=== PATIENT | male | born 1995 | race Caucasian/White ===

== ENCOUNTER 2021-02-01 11:00 | Observation (INO) ==
--- NOTE | 2021-01-31 11:11 | Anesthesiology Consultation ---
Date of Service January 31, 2021 Assessment & Plan (1) Encounter for pre-operative examination: COVID screening: Per assessment on 01/31: Travel screen negative, no known COVID- 19 positive contacts or current COVID-19 related symptoms. Surgeon arranged preop COVID testing (done 01/28- result negative). Chart Review Chart Review: Acceptable Risk for Surgery and Patient NOT seen in Pre Admission Testing Consults Requested none History Surgery Operation Date: 02/01/21 12:25 Proposed Procedures p L4-L5 Decompression with Possible Coflex Spinal Cord Monitoring - Roge Ferro DO Height/Weight Height: 5 ft 10 in Weight: 115.666 kg Allergies Allergy/AdvReac Type Severity Reaction Status Date / Time No Known Allergies Allergy Verified 02/01/21 11:31 Medications Home Medications Medication Instructions Recorded Confirmed Last Taken lisinopril 40 mg PO QPM 01/31/21 02/01/21 2 Days Ago ~01/30/21 meloxicam 15 mg PO QPM 01/31/21 02/01/21 2 Days Ago ~01/30/21 pregabalin [Lyrica] 100 mg PO TID 01/31/21 02/01/21 01/31/21 19:00 Active Medications Generic Name Dose Route Start Last Admin Trade Name Freq PRN Reason Stop Dose Admin Acetaminophen 1,000 mg 02/01/21 06:00 02/01/21 11:46 Acetaminophen 500 Mg Tab PO 02/01/21 18:00 1,000 mg PREOP ZOE Administration Celecoxib 200 mg 02/01/21 06:00 02/01/21 11:46 Celebrex 200 Mg Cap PO 02/01/21 18:00 200 mg PREOP ZOE Administration Gabapentin 900 mg 02/01/21 06:00 02/01/21 11:46 Gabapentin 900 Mg Dose PO 02/01/21 18:00 900 mg PREOP ZOE Administration Lactated Ringer's 1,000 mls @ 15 mls/hr 02/01/21 06:00 02/01/21 11:46 Lr IV 02/02/21 05:59 15 mls/hr .Q24H ZOE Administration Past Medical History Medical History HTN (hypertension) Neuropathy Obesity Past Family History Family History Other No family history of adverse response to anesthesia Past Surgical History Surgical History History of wisdom tooth extraction Social History Smoking Status: Never smoker Do You Dip or Chew Tobacco: No Hx Alcohol Use: Yes Alcohol type: beer alcohol intake frequency: a few times a week Hx Substance Use: Yes substance use type: marijuana Last Used Substance Other:: 1 week ago Physical Exam Vital Signs Last Vital Signs Temp 37.3 C 02/01/21 11:32 Pulse 93 H 02/01/21 11:32 Resp 20 02/01/21 11:32 BP 130/70 02/01/21 11:32 Pulse Ox 97 02/01/21 11:32
[~2021-02-01 11:00] MED LIST: ACETAMINOPHEN 500 MG TAB PO SCH; CeleBREX 200 MG CAP PO SCH; GABAPENTIN 900 MG DOSE PO SCH; LR 15ML/HR IV SCH; ceFAZolin 2000MG 2,000 MG/15 ML SYR IV SCH
[2021-02-01] MEDS ORDERED: NEOSTIGMINE METHYLSULFATE 1 MG/ML 10ML VIAL ONE (11:12)
[2021-02-01] MEDS ORDERED: GLYCOPYRROLATE 0.2 MG/ML VIAL ONE (11:12)
[2021-02-01] MEDS ORDERED: ONDANSETRON INJ 2 MG/ML 2 ML VIAL ONE (11:12)
[2021-02-01] MEDS ORDERED: DEXAMETHASONE SOD INJ 4 MG/ML VIAL ONE (11:12)
[2021-02-01] MEDS ORDERED: LIDOCAINE 2% 2 ML VIAL/AMP(20MG/ML) INFIL ONE (11:12)
[2021-02-01] MEDS ORDERED: PROPOFOL IV EMULSION 10 MG/ML 20 ML VIAL IV ONE (11:12)
[2021-02-01] MEDS ORDERED: MIDAZOLAM HCL 1 MG/ML 2ML VIAL ONE (11:13)
[2021-02-01] MEDS ORDERED: fentaNYL citrate 100 MCG/2 ML VIAL ONE (11:13)
--- NOTE | 2021-02-01 11:57 | History & Physical Bridge Note ---
Date of Service February 01, 2021 History & Physical Bridge Note I have examined the patient, reviewed the History & Physical and in the interval since the performance of the History & Physical I have noted the following changes of clinical significance: no changes noted
--- NOTE | 2021-02-01 11:58 | History & Physical Report ---
Date of Service February 01, 2021 Assessment & Plan (1) Lumbar disc herniation with radiculopathy: Admission and Anticipated Discharge Date Admission Date: L4-L5 decompression possible Coflex History of Present Illness Chief Complaint: Back and bilateral leg pain Primary Care Provider: Tan Lubin This is a 25-year-old male presents with chronic persistent back and leg pain. After failing course of nonoperative care is here for surgical invention. Allergies Allergy/AdvReac Type Severity Reaction Status Date / Time No Known Allergies Allergy Verified 02/01/21 11:31 Home Medications Medication Instructions Recorded Confirmed Type lisinopril 40 mg PO QPM 01/31/21 02/01/21 History meloxicam 15 mg PO QPM 01/31/21 02/01/21 History pregabalin [Lyrica] 100 mg PO TID 01/31/21 02/01/21 History Past Med/Surg History Medical History (Updated 02/01/21 @ 11:58 by Roge Ferro DO) HTN (hypertension) Neuropathy Obesity Surgical History History of wisdom tooth extraction Family History Other No family history of adverse response to anesthesia Social History Smoking Status: Never smoker Second Hand Exposure: Yes (as a child); Do You Dip or Chew Tobacco: No; Hx Alcohol Use: Yes Alcohol type: beer Hx Substance Use: Yes Last Used Substance Other:: 1 week ago Preferred Language: [place]i Communication Ability: Effective 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
[2021-02-01] MEDS ORDERED: HYDROmorphone INJ 2 MG/ML SYR/VIAL IV PRN (12:11)
[2021-02-01] MEDS ORDERED: ePHEDrine sulfate 50 MG/ML AMP IV PRN (12:11)
[2021-02-01] MEDS ORDERED: fentaNYL citrate 100 MCG/2 ML VIAL IV PRN (12:11)
[2021-02-01] MEDS ORDERED: ATROPINE SULFATE 0.1 MG/ML 10ML SYR IV PRN (12:11)
[2021-02-01] MEDS ORDERED: ONDANSETRON INJ 2 MG/ML 2 ML VIAL IV PRN ×2 (12:11→15:39)
[2021-02-01] MEDS ORDERED: BUPIVACAINE/EPINEPHRINE 0.5% MPF 1:200,000 30 ML VIAL ONE (12:14)
[2021-02-01] MEDS ORDERED: BACITRACIN INJ 50,000 UNIT VIAL ONE (12:14)
[2021-02-01] MEDS ORDERED: FLOSEAL HEMOSTATIC MATRIX 10ML TOP ONE (13:32)
--- NOTE | 2021-02-01 13:38 | Operative Report ---
Post Operative Report Pre & Post Diagnosis Operation Date: 02/01/21 12:25 Pre-Op Diagnosis: Spinal Stenosis, Lumbar Region with Neurogenic Claudication Post-Op Diagnosis: Spinal Stenosis, Lumbar Region with Neurogenic Claudication I identified the patient and participated in the time-out.: Yes Procedure Operation Date: 02/01/21 12:25 Actual Procedures #1 Lumbar decompression with bilateral medial facetectomies and partial discectomy L4-L5. #2 placement of 14 mm Coflex at L4-L5. Surgeon Roge Ferro, DO Supervisor Frame Sample And Pattern Conrad Lott Estimated Blood Loss 25 Findings See Below The patient is 5 foot 10 inches tall weighing over 117 kg with a BMI in excess of 37. The patient's body habitus did increase technical difficulty adding at least 50% increase to the operative time. Specimens None Indications This is a 25-year-old male who presents with above-mentioned diagnosis after failing course of nonoperative care is here for the above-mentioned procedure. Description of Procedure Patient was met with identified informed consent obtained. Patient was then taken to the operative suite underwent a patient placed in a prone position injectable top Lewis frame. All bony prominences well-padded eyes inspected to ensure no external pressure placed upon them. This point the lumbar spine was prepped and draped in a sterile fashion. Sharp dissection with assistance pericardial performed down to and exposing the interlaminar space at L4-L5. Self-retaining retractors placed. Then performed a midline decompression. I noted severe spinal stenosis requiring extensive bilateral medial facetectomies to adequately decompress the traversing nerve roots. I did identify a posterior disc herniation on the right. This was removed assisting in decompression of the roots. Because of the medial facetectomies and risk of inducing instability and including the gentleman's body weight I placed a 14 mm Coflex in the interlaminar space to assist in maintenance of the decompression and stability. The incision was then copiously irrigated 15 round JIMI drain inserted. Was then closed with 1 Vicryl the fascia 2-0 Vicryl subcutaneously and 4 Monocryl for final skin closure. Steri-Strip sterile dressings placed. Patient waken day to PACU stable condition. Please note Conrad Lott was present at the entire procedure involved the patient positioning complex portions of the surgery and final skin closure. I attest to the content of the Intraoperative Record and any orders documented therein. Any exceptions are noted below.
[2021-02-01] MEDS ORDERED: ROCURONIUM BROMIDE 10 MG/ML 5 ML VIAL IV ONE (13:40)
--- NOTE | 2021-02-01 13:52 | Fluoroscopy Report ---
FL spine 1V any level HISTORY: 25 years-old Male L4-L5 DECOMPRESSION WITH COFLEX chronic low back pain COMPARISON: None TECHNIQUE: One spot fluoroscopic images of the lumbar spine was obtained utilizing 3.1 seconds fluoro scopy time FINDINGS: A metallic spacer device is interposed between the L4 and L5 spinous processes. Alignment is satisfac tory. IMPRESSION: Fluoroscopic assistance as above. ACT 112: Negative or not required by law. The above report was generated using voice recognition software. It may contain grammatical, syntax o r spelling errors. Electronically signed by: Gigi Rodriguez M.D. 02/01/2021 1:51 PM
--- NOTE | 2021-02-01 14:41 | Anesthesiology Progress Note ---
Date of Service February 01, 2021 Anesthesia Post Procedure Vital Signs Vital Signs: Temp Pulse Pulse Resp BP BP Pulse Ox 02/01/21 14:30 85 12 124/85 93 02/01/21 14:20 82 16 131/77 94 02/01/21 14:10 78 12 133/68 99 02/01/21 14:00 84 20 116/72 98 02/01/21 13:58 36.3 C L 103 H 18 135/83 98 02/01/21 11:32 37.3 C 93 H 20 130/70 97 Transfer of Care Handoff Completed per policy Notes Mental Status: alert / awake / arousable and participated in evaluation Patient Amnestic to Procedure: Yes Nausea / Vomiting: adequately controlled Pain: adequately controlled Airway Patency, RR, SpO2: stable & adequate BP & HR: stable & adequate Hydration State: stable & adequate Anesthetic Complications: no major complications apparent
[2021-02-01] MEDS ORDERED: bisacodyL 10 MG SUPP PR PRN (15:39)
[2021-02-01] MEDS ORDERED: hydrOXYzine HCl 25 MG TAB PO PRN (15:39)
[2021-02-01] MEDS ORDERED: oxyCODONE HCL IR 5 MG TAB (IMMEDIATE RELEASE) PO PRN (15:39)
[2021-02-01] MEDS ORDERED: ONDANSETRON 4 MG OD TAB PO PRN (15:39)
[2021-02-01] MEDS ORDERED: SOD PHOSPHATE/SOD BIPHOSPHATE ENEMA 132 ML BTL PR PRN (15:39)
[2021-02-01] MEDS ORDERED: DO NOT ADMINISTER FLU VACCINE PRN (15:39)
[2021-02-01] MEDS ORDERED: DO NOT ADMINISTER PNEUMOCOCCAL VACCINE PRN (15:39)
[2021-02-01] MEDS ORDERED: MAGNESIUM HYDROXIDE SUSP 30 ML UDC PO PRN (15:39)
[2021-02-01] MEDS ORDERED: traMADol HCL 50 MG TABLET PO PRN (15:39)
[2021-02-01] MEDS ORDERED: NALOXONE HCL 0.4 MG/1 ML VIAL/CARP IV PRN (15:39)
[2021-02-01] MEDS ORDERED: ALUMINUM/MAGNESIUM SUSP 30 ML UDC PO PRN (15:39)
[2021-02-01] MEDS ORDERED: FAMOTIDINE 20 MG TAB PO PRN (15:39)
[2021-02-01] MEDS ORDERED: LORazepam 0.5 MG/1 ML VIAL IV PRN (15:39)
[2021-02-01] MEDS ORDERED: ACETAMINOPHEN 1,000 MG/100 ML VIAL IV PRN (15:39)
[2021-02-01] MEDS ORDERED: HYDROmorphone INJ 1 MG/ML SYRINGE IV PRN (15:39)
[2021-02-01] MEDS ORDERED: PROMETHAZINE HCL 12.5 MG in SODIUM CHLORIDE 0.9% 50 ML IV PRN (15:39)
[2021-02-01] MEDS ORDERED: ACETAMINOPHEN 500 MG TAB PO PRN (15:39)
[2021-02-01] MEDS ORDERED: METOCLOPRAMIDE HCL INJ 5 MG/ML 2 ML VIAL IV PRN (15:39)
[2021-02-01] MEDS ORDERED: LORazepam 0.5 MG TAB PO PRN (15:39)
[2021-02-01] MEDS ORDERED: HYDROmorphone INJ 0.5 MG/0.5 ML SYR IV PRN (15:39)
[2021-02-01] MEDS ORDERED: diphenhydrAMINE Capsule 25 MG CAP PO PRN (15:39)
[2021-02-01] MEDS: PREGABALIN 100 MG CAP PO SCH ×2 (16:12→21:44)
[2021-02-01] MEDS: KETOROLAC 30 MG/ML VIAL IV SCH ×2 (16:13→21:44)
[2021-02-01] MEDS: LACTATED RINGER'S 1,000 ML IV SCH (17:26)
[2021-02-01] MEDS: ceFAZolin 2000MG 2,000 MG/15 ML SYR IV SCH (19:30)
[2021-02-01] MEDS ORDERED: DOCUSATE SODIUM/SENNA 50/8.6MG TAB PO SCH (21:00)
[2021-02-01] MEDS ORDERED: lisinopril 40 MG TAB PO SCH (21:00)
[2021-02-02] MEDS: LACTATED RINGER'S 1,000 ML IV SCH (00:42)
[2021-02-02] MEDS: POLYETHYLENE (MIRALAX) 17 GM PACK PO SCH ×2 (04:51→11:18)
[2021-02-02] MEDS: KETOROLAC 30 MG/ML VIAL IV SCH ×2 (04:51→10:22)
[2021-02-02] MEDS: ceFAZolin 2000MG 2,000 MG/15 ML SYR IV SCH (04:51)
[2021-02-02] MEDS: PREGABALIN 100 MG CAP PO SCH (08:11)
--- NOTE | 2021-02-02 10:22 | Discharge Summary ---
Date of Service February 02, 2021 Admission HPI Per Admitting Provider This is a 25-year-old male presents with chronic persistent back and leg pain. After failing course of nonoperative care is here for surgical invention. Principal Diagnosis Lumbar spinal stenosis with neurogenic medication Discharge Data Allergies Allergy/AdvReac Type Severity Reaction Status Date / Time No Known Allergies Allergy Verified 02/01/21 11:31 Procedures Performed Operation Date: 02/01/21 12:25 Actual Procedures p L4-L5 Decompression with Coflex(Not Applicable) - Roge Ferro DO Ordered Studies 02/01/21 12:25 FL fluoroscopy <1hr Routine FL spine 1V any level Routine Hospital Course (1) Lumbar disc herniation with radiculopathy: Patient went lumbar decompression with Coflex tolerates well second orthopedic for possibly. Postop day 1 is ambulating leg pain markedly improved. Pain well controlled. Excellent strength testing. JIMI drain decreasing appropriately. Subsequent discharge home. Discharge orders instructions from the chart for further review. Total Time Total Time Spent Total Time Spent (In Minutes): 20 minutes Discharge Plan Discharge Items Patient Disposition: Home - Self-Care Reason For Visit: Apinal Stenosis, Lumbar Regtion Neurogenic Claudic Discharge Diagnosis: Lumbar spinal stenosis with neurogenic claudication Activity: As commented below Non-emergency contact: Primary Care Provider Call non-emergency contact if: you have any medication questions Follow-up/Referrals: Tan Lubin [Primary Care Provider] - Diet: Regular Addtl Attending Provider Instructions: ACTIVITY RECOMMENDATIONS: SELF CARE INSTRUCTIONS AFTER A LAMINECTOMY 1. No prolonged sitting (less than 30 minutes for the first 3 weeks after surgery). 2. No bending, lifting more than 5 pounds, or twisting (roll like a log when turning in bed). 3. You may shower 3 days after surgery if no drainage from wound. Thoroughly dry wound. Do not soak in the tub. 4. Please walk as much as you can for exercise. Gradually increase the distance that you walk as your endurance increases. 5. You may drive in 7-10 days if you are comfortable and no longer requiring pain medications. SPECIAL CARE INSTRUCTIONS: VERY IMPORTANT TO READ AND REVIEW A. Your surgical incision has been closed with a cosmetic suture under the skin that will dissolve in about 6 weeks. In 14 days, you can use a pair of clean scissors and cut the suture that is left outside of the skin at the ends of your incision. B. Complications are uncommon, but please contact us if you have any signs or symptoms of: 1. wound infection (fever higher than 102.5 degrees F, redness, separation of wound, drainage, or increasing pain from the incision) 2. blood clots in legs (pain, swelling, redness and warmth in legs) 3. urinary tract infection (fever higher than 102.5 degrees, burning upon urination or increased frequency of urination) 4. nerve problems (inability to walk on your toes or heels, numbness, loss of bowel or bladder control) 5. any other symptoms that concern you. C. Please call the office at if you have any concerns or questions about your operation or recovery. MANAGING PAIN AFTER SPINAL SURGERY 1. Narcotic medication is intended for short-term use and will be provided for surgical pain. Surgical pain usually lasts for a period of 4-6 weeks. Narcotic medication includes Percocet, Vicodin, Darvocet, Tylenol #3 or Lortab. 2. Longer-term pain is more appropriately treated with non-narcotic medication such as Tylenol ES. 3. Muscle spasm is not appropriately treated with narcotics. Muscle relaxers such as Soma, Flexeril or Skelaxin can be used along with Tylenol ES. 4. Remember that we all live with some "aches and pains". This is not unusual or uncommon after an injury or as we get older. 5. We will provide appropriate medication within the normal guidelines of their prescribed use. We will also be very cautious and aware of potential abuse and extended duration of patients' medication needs. 6. Please allow 2-3 days to process refills. Prescriptions will not be mailed but must be picked up at the office. FOLLOW UP VISIT: Keep your scheduled follow-up appointment. Any questions, please call the office at . Pending Studies at Discharge: No Stand-Alone Forms: [employer], Smoking Cessation Medications and DC Order Prescriptions: New tramadol 50 mg tablet 50 mg PO Q6H PRN (Reason: pain, moderate) Qty: 20 RF: 0 oxycodone 5 mg tablet 5 mg PO Q6H PRN (Reason: pain, severe) Qty: 20 RF: 0 Continued meloxicam 15 mg Tablet 15 mg PO QPM RF: 0 lisinopril 40 mg Tablet 40 mg PO QPM RF: 0 pregabalin [Lyrica] 100 mg Capsule 100 mg PO TID RF: 0 Discharge Orders: Discharge Order (Routine); Ordered 02/02/21 Ordered By: Roge Ferro Admission Data Admit Date/Time: 02/01/21 14:05 Attending Provider: Roge Ferro Admit Provider: Roge Ferro Primary Care Provider: Tan Lubin
== END 2021-02-02 12:36 | disposition home or self-care (01) ==
LOC: ASU 11:00 → 3E 11:00